=== PATIENT | male | born 2000 | race Caucasian/White ===

== ENCOUNTER 2024-08-10 14:23 | Emergency (ER) | payer MEDICAID ==
[~2024-08-10] VITALS: Ht 167.6 cm; Wt 77.0 kg
[2024-08-10 14:27] VITALS: TEMP 37.2; O2SAT 100; O2SAT 99
[2024-08-10] MEDS: SODIUM CHLORIDE 0.9% 1,000 ML IV ONE (15:30)
[2024-08-10 15:44] VITALS: BP 153/81; PULSE 115; RESP 18
[2024-08-10] MEDS: ONDANSETRON HCL 4MG/2ML INJ IV STA (15:44)
[2024-08-10] MEDS: KETOROLAC 30MG/ML VIAL IV STA (15:44)
[2024-08-10 15:51] LABS: CHLORIDE 95 mEq/L (98-107); POTASSIUM 3.3 mEq/L (3.5-5.1); SODIUM 134 mEq/L (136-145)
[2024-08-10 15:52] LABS: CALCIUM 10.1 mg/dL (8.7-10.4); CARBON DIOXIDE 30 mEq/L (21-32)
[2024-08-10 15:57] LABS: CREATININE 1.2 mg/dL (0.6-1.3); GLUCOSE 99 mg/dL (70-105); UREA NITROGEN BLOOD 9 mg/dL (9-23)
[2024-08-10 15:59] LABS: ALANINE AMINOTRANSFERASE 41 IU/L (10-49); ALBUMIN 5.2 g/dL (3.2-4.8); ASPARTATE AMINOTRANSFERASE 19 IU/L (<34); BASOPHILS % 0.1 % (0.0-2.0); BILIRUBIN DIRECT 0.5 mg/dL (<=3.0); BILIRUBIN TOTAL 1.4 mg/dL (0.1-1.0); HEMATOCRIT. 47.7 % (42.0-52.0); HEMOGLOBIN. 15.9 g/dL (14.0-18.0); LYMPHOCYTES % 7.2 % (20.0-50.0); MEAN CORPUSCULAR HEMOGLOBIN 28.7 pg (28.0-32.0); MEAN CORPUSCULAR HGB CONC 33.3 g/dL (31.0-37.0); MEAN CORPUSCULAR VOLUME 86.3 fL (80.0-94.0); MEAN PLATELET VOLUME 7.9 fl (7.4-10.4); MONOCYTES % 9.8 % (2.0-8.0); NEUTROPHILS % 82.9 % (40.0-76.0); PLATELET 328 x1000/uL (130-400); RED BLOOD CELL COUNT 5.52 mill/uL (4.7-6.1); RED CELL DISTRIBUTION WIDTH 13.7 % (11.6-14.6)
[2024-08-10 16:00] LABS: PROTEIN TOTAL 8.7 g/dL (6.0-8.3)
[2024-08-10 16:01] LABS: ETHANOL BLOOD < 10 mg/dL (<10)
[2024-08-10] MEDS: POTASSIUM CHLORIDE 10MEQ TABLET SR PO ONE (17:30)
[2024-08-10] MEDS ORDERED: ACET-2708 PO (17:46)
[2024-08-10] MEDS ORDERED: ONDA-239 PO (17:46)
== END 2024-08-10 19:15 | disposition home or self-care (01) ==
LOC: ER 14:23
DX: K29.00 Acute gastritis without bleeding (principal); R07.9 Chest pain, unspecified
CPT/HCPCS: 80076; 80048; 80320; 83690; 85025; 36415; 74176; 93005; 96361; 96374; 96375; 99285; J1885; J2405; J7030; G0480